=== PATIENT | female | born 1940 | race Caucasian/White ===

== ENCOUNTER → 2019-09-24 10:14 | Outpatient (BNVA) | payer MEDICARE, MEDICAID, SELFPAY | PROVIDERS: Family Provider Family Medicine; Visit Provider Nurse Practitioner Psychiatric/Mental Health | DX: F33.41 Major depressive disorder, recurrent, in partial remission (principal); F41.8 Other specified anxiety disorders; Z86.59 Personal history of other mental and behavioral disorders | CPT/HCPCS: 99213 ==

== ENCOUNTER → 2019-10-02 09:30 | Outpatient (BNVA) | payer MEDICARE, MEDICAID, SELFPAY | PROVIDERS: Family Provider Family Medicine; Visit Provider Nurse Practitioner Psychiatric/Mental Health | DX: Z79.899 Other long term (current) drug therapy (principal) | CPT/HCPCS: 80061; 83036 ==

== ENCOUNTER → 2020-01-14 07:52 | Outpatient (BNVA) | payer MEDICARE, MEDICAID, SELFPAY | PROVIDERS: Family Provider Family Medicine; Visit Provider Nurse Practitioner Psychiatric/Mental Health | DX: F33.41 Major depressive disorder, recurrent, in partial remission (principal); F41.8 Other specified anxiety disorders; Z86.59 Personal history of other mental and behavioral disorders; F41.1 Generalized anxiety disorder | CPT/HCPCS: 99213 ==

== ENCOUNTER → 2020-05-13 08:14 | Outpatient (BNVA) | payer MEDICARE, MEDICAID, SELFPAY | PROVIDERS: Family Provider Family Medicine; Visit Provider Nurse Practitioner Psychiatric/Mental Health | DX: F33.41 Major depressive disorder, recurrent, in partial remission (principal); F41.8 Other specified anxiety disorders; Z86.59 Personal history of other mental and behavioral disorders | CPT/HCPCS: 99213 ==

== ENCOUNTER 2020-06-01 15:13 | Outpatient (CLI) | payer MEDICARE, MEDICAID, SELFPAY ==
--- NOTE | 2020-06-01 15:20 | MM_ITS ---
WS: [id number] BILATERAL SCREENING DIGITAL MAMMOGRAM WITH CAD HISTORY: SCREENING COMPARISON: 05/21/2019 and 09/29/2011 Bilateral CC and MLO views submitted. Computer aided detection analyzed. Breast composition: There are scattered areas of fibroglandular density. No suspicious masses, microc alcifications or architectural distortion. Stable cluster of calcifications in the lateral RIGHT [address] MM/[place] [id number] IMPRESSION: BI-RADS: 2-Benign FOLLOW UP: 1 Year Follow-up
== END 2020-06-01 15:14 | disposition home or self-care (01) ==
LOC: RADSHAW 15:19
PROVIDERS: PCP Family Medicine; Visit Provider Family Medicine
DX: Z12.31 Encounter for screening mammogram for malignant neoplasm of breast (principal)
CPT/HCPCS: 77067

== ENCOUNTER → 2020-09-08 07:57 | Outpatient (BNVA) | payer MEDICARE, MEDICAID, SELFPAY | PROVIDERS: PCP Family Medicine; Visit Provider Nurse Practitioner Psychiatric/Mental Health | DX: F33.41 Major depressive disorder, recurrent, in partial remission (principal); F41.8 Other specified anxiety disorders; Z86.59 Personal history of other mental and behavioral disorders; Z79.899 Other long term (current) drug therapy | CPT/HCPCS: 99214 ==

== ENCOUNTER → 2020-09-29 09:13 | Outpatient (BNVA) | payer MEDICARE, MEDICAID, SELFPAY | PROVIDERS: PCP Family Medicine; Visit Provider Nurse Practitioner Psychiatric/Mental Health | DX: Z79.899 Other long term (current) drug therapy (principal) | CPT/HCPCS: 80053; 80061; 83036 ==

== ENCOUNTER → 2021-01-12 07:32 | Outpatient (BNVA) | payer MEDICARE, MEDICAID, SELFPAY | PROVIDERS: PCP Family Medicine; Visit Provider Nurse Practitioner Psychiatric/Mental Health | DX: F33.41 Major depressive disorder, recurrent, in partial remission (principal); F41.8 Other specified anxiety disorders; Z86.59 Personal history of other mental and behavioral disorders | CPT/HCPCS: 99214 ==

== ENCOUNTER → 2021-05-11 07:13 | Outpatient (BNVA) | payer MEDICARE, MEDICAID, SELFPAY | PROVIDERS: PCP Family Medicine; Visit Provider Nurse Practitioner Psychiatric/Mental Health | DX: F33.41 Major depressive disorder, recurrent, in partial remission (principal); F41.8 Other specified anxiety disorders; Z86.59 Personal history of other mental and behavioral disorders | CPT/HCPCS: 99214 ==

== ENCOUNTER → 2021-08-31 07:41 | Outpatient (BNVA) | payer MEDICARE, MEDICAID, SELFPAY | PROVIDERS: PCP Family Medicine; Visit Provider Nurse Practitioner Psychiatric/Mental Health | DX: F33.41 Major depressive disorder, recurrent, in partial remission (principal); F41.8 Other specified anxiety disorders; Z86.59 Personal history of other mental and behavioral disorders | CPT/HCPCS: 99214 ==

== ENCOUNTER → 2021-12-28 07:20 | Outpatient (BNVA) | payer MEDICARE, MEDICAID, SELFPAY | PROVIDERS: PCP Family Medicine; Visit Provider Nurse Practitioner Psychiatric/Mental Health | DX: F33.41 Major depressive disorder, recurrent, in partial remission (principal); F41.8 Other specified anxiety disorders; Z86.59 Personal history of other mental and behavioral disorders; Z79.899 Other long term (current) drug therapy | CPT/HCPCS: 99214 ==

== ENCOUNTER → 2022-04-18 11:22 | Outpatient (BNVA) | payer MEDICARE, MEDICAID, SELFPAY | PROVIDERS: PCP Family Medicine; Visit Provider Nurse Practitioner Psychiatric/Mental Health | DX: F33.41 Major depressive disorder, recurrent, in partial remission (principal); F41.8 Other specified anxiety disorders; Z86.59 Personal history of other mental and behavioral disorders; Z79.899 Other long term (current) drug therapy | CPT/HCPCS: 80053; 80061; 83036 ==

== ENCOUNTER → 2022-10-23 16:15 | Outpatient (BNVA) | payer MEDICARE, MEDICAID, OTHER, SELFPAY | PROVIDERS: PCP Family Medicine; Visit Provider Nurse Practitioner Women's Health | DX: N95.0 Postmenopausal bleeding (principal) | CPT/HCPCS: 87624 ==

== ENCOUNTER → 2022-11-07 10:42 | Outpatient (BNVA) | payer MEDICARE, MEDICAID, OTHER, SELFPAY | PROVIDERS: PCP Family Medicine; Visit Provider Nurse Practitioner Women's Health | DX: N93.9 Abnormal uterine and vaginal bleeding, unspecified (principal) | CPT/HCPCS: 76830 ==

== ENCOUNTER 2022-12-28 09:42 | Day surgery (SDC) | payer MEDICARE, MEDICAID, SELFPAY ==
[2022-12-27 12:36] VITALS: BMI 26.7
[2022-12-28] VITALS (9 sets, daily range): BP systolic 112–142; BP diastolic 67–88; PULSE 69–86; RESP 16; TEMP 36.1–36.4; O2SAT 91–96
[2022-12-28] MEDS: sodium chloride 0.9% 1,000 ML 30 ML IV (10:21)
--- NOTE | 2022-12-28 11:48 | W.PM.OPSUD ---
Surgery/Procedure H&P Update DATE OF PROCEDURE: December 28, 2022 DATE H&P PERFORMED: 12/05/22 CHANGES TO PREVIOUS DOCUMENTATION: none PREOP DIAGNOSIS: abnormal uterine bleeding PRIMARY INDICATION FOR PROCEDURE: abnormal uterine bleeding PLANNED PROCEDURE: Operation Date: 12/28/22 11:45 Proposed Procedures p Hysteroscopy with Myosure, endometrial sampling 02824, possible endometrial polypectomy 85869,N95.0(Not Applicable) - Harvey Maynard MD s possible endometrial polypectomy 09199(Not Applicable) - Harvey Maynard MD
--- NOTE | 2022-12-28 13:13 | ANES.PREANE2 ---
Pre-Anesthetic Assessment Height/Weight: Height 1.63 m Weight 70.76 kg Temp Pulse Resp BP Pulse Ox O2 Del Method 97.5 F L 72 16 112/85 96 Room Air 12/28/22 10:05 12/28/22 10:05 12/28/22 10:05 12/28/22 10:05 12/28/22 10:05 12/28/22 10:05 Preop Diagnosis: abnormal uterine bleeding Operation Date: 12/28/22 11:45 Proposed Procedures p Hysteroscopy with Myosure, endometrial sampling 83114, possible endometrial polypectomy 47376,N95.0(Not Applicable) - Harvey Maynard MD s possible endometrial polypectomy 19309(Not Applicable) - Harvey Maynard MD Familial anesthetic complications: none Was Beta Briseida taken within 24 hours: N/A Was Clonidine taken within 24 hours: N/A Last intake: Intake Last Liquid Date 12/27/22 Last Liquid Time 19:00 Last Solid Date 12/27/22 Last Solid Time 19:00 Social No alcohol and No tobacco Exam alert, oriented x 3, clear to auscultation bilaterally and regular rate & rhythm Airway Submandibular: within normal limits Cervical ROM: within normal limits Mallampati: Class II Dentition: full Neuropsych Anxiety and Depression OCD Anesthetic Plan ASA status: 2 Anesthesia: General Medications/Allergies Home Medications Medication Instructions Recorded Confirmed Last Taken Type aspirin 325 mg tablet 325 mg PO DAILY 10/23/22 12/28/22 12/27/22 History fluoxetine 40 mg capsule (Prozac) 40 mg PO QAM #30 caps 11/21/22 12/28/22 12/27/22 Rx lorazepam 0.5 mg tablet 0.5 mg PO BID PRN anxiety #60 tabs 11/21/22 12/28/22 12/27/22 Rx olanzapine 10 mg tablet (Zyprexa) 10 mg PO BID #60 tabs 11/21/22 12/28/22 12/27/22 Rx Allergies Allergy/AdvReac Type Severity Reaction Status Date / Time No Known Allergies Allergy Verified 12/05/22 09:10 Current Medications Generic Name Dose Route Start Last Admin Trade Name Freq PRN Reason Stop Dose Admin Sodium Chloride 1,000 mls @ 30 mls/hr 12/28/22 10:00 12/28/22 10:21 Sodium Chloride 0.9% IV 12/29/22 09:59 30 mls/hr .Q24H IGLESIA Administration PFSH Anesthesia Medical History History of obsessive compulsive disorder Major depressive disorder, recurrent episode, in partial remission with anxious distress Psychiatric care Family History Denies family history of Cervical cancer Colon cancer Ovarian cancer Diabetes Breast cancer Hypertension Uterine cancer Stroke Social History Smoking and tobacco status: never smoked Data Anesthesia Cardiac Studies: No Data to Display
--- NOTE | 2022-12-28 16:55 | ANE.PACU2 ---
Inpatient post-anesthesia follow up: Airway intact: Yes Vital signs: Temperature 97 F Pulse Rate 77 Respiratory Rate 16 Blood Pressure 120/74 Pulse Oximetry 92 Oxygen Delivery Me thod Room Air Oxygen Flow Rate Fraction of Inspir ed Oxygen Hydration adequate: Yes Nausea and vomiting: No Pain level: 2 Mental status: Baseline
--- NOTE | 2022-12-29 08:40 | PM.OP ---
Operative Report Date of procedure: December 28, 2022 Pre-op diagnosis: Preop Diagnosis abnormal uterine bleeding Post-op diagnosis: same Post-op findings: uterus sounded to 8 cm Moderate amount of endometrial tissue No polyps / fibroids Procedure done: hysteroscopy curettage of uterus Specimens removed/disposition: endometrial curettings Surgeon: Harvey Maynard MD Estimated blood loss (mL): 0 Complications: none Condition: stable Brief History: 82 y.o. with postmenopausal bleeding Procedure: Informed consent signed. Patient was taken to the operating room. Anesthesia induced. Patient was placed in dorsolithotomy position, prepped and draped for hysteroscopy. A bivalve speculum was placed in the vagina. The anterior lip of the cervix was grasped with a sharp-toothed tenaculum. The cervix was serially dilated with Hegar dilators. . A hysteroscope was placed into the endometrial cavity. The endometrial cavity was seen to have moderate amount of endometrial tissue with multiple bleeding points. There were no polyps or fibroids. The hysteroscope was then removed. Endometrial curettage was done with a sharp curette. Endometrial tissue was sent to pathology. The sharp-toothed tenaculum was removed. There was no bleeding from the endometrial cavity or cervix. The patient was then placed supine and awakened and taken to the PACU. Postop condition: stable EBL: none Sponge and instruments counts were normal x 2 Complications: none
== END 2022-12-28 17:10 | disposition home or self-care (01) ==
PROVIDERS: PCP Family Medicine; Visit Provider Obstetrics & Gynecology
PROC: 0UDB8ZZ Extraction of Endometrium, Via Natural or Artificial Opening Endoscopic (ICD-10-PCS; CPT 58558; principal; 2022-12-28 11:35)
DX: N95.0 Postmenopausal bleeding (principal); Z79.82 Long term (current) use of aspirin; F41.9 Anxiety disorder, unspecified; F32.A Depression, unspecified
CPT/HCPCS: 58558; 88305; J1100; J1200; J2405; J2704; J3010; J7030

== ENCOUNTER → 2023-05-22 13:31 | Outpatient (BNVA) | payer MEDICARE, MEDICAID, SELFPAY | PROVIDERS: PCP Family Medicine; Visit Provider Nurse Practitioner Psychiatric/Mental Health | DX: Z79.899 Other long term (current) drug therapy (principal) | CPT/HCPCS: 80061; 83036 ==

== ENCOUNTER 2023-06-26 11:45 | Emergency (ER) | payer MEDICARE, MEDICAID, SELFPAY ==
[2023-06-26 11:46] VITALS: BP 126/83; PULSE 81; RESP 14; TEMP 36.7; O2SAT 98; BMI 26.1
--- NOTE | 2023-06-26 11:55 | ECG_ITS ---
[facility] Test Date: 2023-06-26 Pat Name: Gabriela Denny Department: Room: Gender: Female Recruiting Administrator: : 1940 Requested By: Yulia Morales Order Number: [id number] Yola MD: Kathi Hauser M.D. Measurements Intervals [place] Rate: 84 P: 74 W[place]: 149 QRS: 23 QRSD: 80 T: 30 QT: 372 QTc: 442 Interpretive Statements SINUS RHYTHM Compared to ECG 07/20/2016 14:37:42 Ectopic atrial rhythm no longer present Ventricular premature complex(es) no longer present Electronically Signed On 06-26-2023 14:24:23 ASSISTANT DIRECTOR OF FINANCIAL AID by Kathi Hauser M.D. [email or web address]
--- NOTE | 2023-06-26 12:03 | XRR_ITS ---
PROCEDURE INFORMATION: Exam: XR Chest Exam date and time: 06/26/2023 12:06 PM Age: 82 years old Clinical indication: Patient HX: Syncope, PT very shaky since early this morning TECHNIQUE: Imaging protocol: Radiologic exam of the chest. Views: 1 view. COMPARISON: CR XR chest 2V* [id number] 07/20/2016 2:46 PM FINDINGS: Lungs: Mild atelectasis or infiltrate at the lateral left lung base. Pleural spaces: Unremarkable. No pleural effusion. No pneumothorax. Heart/Mediastinum: See Vasculature finding. Vasculature: Borderline cardiomegaly and uncoiling of the thoracic aorta each accentuated by the AP. Bones/joints: Unremarkable. XR/XR chest 1V portable [id number] IMPRESSION: Minimal atelectasis or infiltrate at the lateral left lung base.
--- NOTE | 2023-06-26 12:04 | W.ED.SYNCOPE ---
HPI - Syncope General: Chief Complaint: Syncope Stated Complaint: syncope Time Seen by Provider: 06/26/23 11:53 Source: patient Mode of arrival: EMS Limitations: no limitations History of Present Illness: Patient is a nice 82-year-old female presents to ED today via EMS along with her for evaluation of a possible syncopal episode. According to report patient was at [facility] speaking to her psychiatrist when she began to feel dizzy and lightheaded. Report states that patient had a syncopal episode although patient denies this. Report also states that patient was bradycardic in the 30s. Patient does states she remembers feeling lightheaded but does not believe she ever passed out. Upon arrival to the emergency department she states she is completely asymptomatic. She arrives with normal vital signs. She states the only medications she takes is for depression and an aspirin a day. Denies chest pain, shortness of breath, difficulty breathing, or palpitations. She is not having any dizziness or lightheadedness upon arrival. MD complaint: loss of consciousness Onset (ago): minute(s) -: second(s) Prodromal symptoms: lightheaded Witnessed: Yes - by Bystander Injuries sustained associated with event: none Associated symptoms: Deny abdominal pain, chest pain, fever(s), headache(s), lightheadedness, nausea or vertigo Treatments prior to arrival: none Review of Systems Const: Denies: fever(s) or chills Eyes: Denies: change in vision or blurry vision Card: Denies: chest pain, palpitations, irregular heart rhythm, edema, swelling of feet/ankles, lightheadedness, syncope or dyspnea on exertion Resp: Denies: dyspnea, productive cough or pain on inspiration GI: Denies: abdominal pain, nausea, vomiting, heartburn or diarrhea : Denies: dysuria Musc: Denies: neck pain, back pain, extremity pain, extremity swelling or joint pain Skin/Breast: Denies: rash Neuro: Reports: dizziness (subsided upon arrival); Denies: headache(s), numbness in extremities, weakness in extremities, sensory changes, lack of coordination, difficulty walking, frequent falls, vertigo, confusion, behavioral changes, Slurred speech present, difficulty communicating thoughts or seizure-like activity [facility] PFSH: Medical History History of obsessive compulsive disorder Major depressive disorder, recurrent episode, in partial remission with anxious distress Psychiatric care Family History Denies family history of Cervical cancer Colon cancer Ovarian cancer Diabetes Breast cancer Hypertension Uterine cancer Stroke Social History Smoking and tobacco/nicotine status: never used tobacco/nicotine Physical Exam Const: COMMON NORMALS: no acute distress, average body habitus, patient oriented x3, no limitations, healthy appearing, alert and well nourished GENERAL APPEARANCE: cooperative ORIENTATION/CONSCIOUSNESS: Yes awake, Yes oriented to person and Yes oriented to time HENMT: COMMON NORMALS: normocephalic and atraumatic HEAD & SCALP: normal to inspection, normocephalic and atraumatic FACE & SINUS: normal facial exam Eye: COMMON NORMALS: Equal, round and reactive pupils present and EOMs intact bilaterally GENERAL EYE: appearance normal, both eyes and all related structures and normal light reflex PUPIL: Yes Equal, round and reactive pupils present DIRECT OPHTHALMOSCOPY: Yes normal light reflex Neck/C-Spine: COMMON NORMALS: full ROM, no lymphadenopathy, supple and no meningeal signs Chest: COMMONS NORMALS: normal inspection of the chest Resp: COMMON NORMALS: normal respiratory effort and clear to auscultation bilaterally AUSCULTATION: clear to auscultation bilaterally Cardio: COMMON NORMALS: regular rate and regular rhythm RATE: regular rate RHYTHM: regular rhythm GI: COMMON NORMALS: Normal to inspection, nondistended, normoactive bowel sounds present, Soft to palpation, non-tender, No hepatosplenomegaly present and no masses PALPATION: Yes Soft to palpation and Yes No hepatosplenomegaly present : COMMON NORMALS: Yes no CVA tenderness BLADDER/KIDNEY EXAM: Yes no CVA tenderness Back/Pelvis: COMMON NORMALS: no CVA tenderness, thoracic and lumbar spine normal to inspection, no thoracic nor lumbar tenderness and thoraco-lumbar ROM normal Extremity: COMMON NORMALS: normal to inspection and full ROM GENERAL: Yes normal exam except as noted Neuro: JULIÁN COMA SCALE: document GCS findings Julián coma scale eye opening: Spontaneous Julián coma scale verbal response: Orientated [place] coma scale motor response: Obey commands Julián coma scale total score: 15 COMMON NORMALS: patient oriented x3, CN's II-XII intact bilaterally, moves all extremities, no focal motor deficits and no sensory deficits noted SENSORIUM/ORIENTATION: Yes alert, Yes oriented to person and Yes oriented to time MENINGEAL SIGNS: Yes no meningeal signs SPEECH: speech normal Skin: COMMON NORMALS: no rashes or lesions noted GENERAL SKIN EXAM: no rashes or lesions noted Course Vital Signs: Vital signs: Vital Signs Temperature 98.1 F 06/26/23 11:46 Pulse Rate 80 06/26/23 13:23 Respiratory Rate 14 06/26/23 11:46 Blood Pressure 137/84 06/26/23 13:23 Pulse Oximetry 97 06/26/23 13:23 Oxygen Delivery Me thod Room Air 06/26/23 13:01 Oxygen Flow Rate 2 06/26/23 11:46 MDM - Syncope Medical Decision Making Patient is a nice 82-year-old female here following a possible syncopal episode although patient states she never lost consciousness. She states she got lightheaded and dizzy although never lost consciousness. EMS got report from [facility] that said she did lose consciousness and possibly bradycardia down into the 30s. Pulse rate was 80s when EMS arrived and picked her up. She has been 80s throughout her emergency department stay. Upon arrival to the ED she is completely asymptomatic. Her blood work including trop is unremarkable. UA clear. EKG showing normal sinus in the 80s. CXR showing minimal atelectasis versus infiltrate in her lateral left lung base. Patient denies shortness of breath or cough. She has not recently been ill. Vital signs are normal. She has a normal white count. I favor this is more atelectasis. She was able to get up and ambulate surprisingly well here in the emergency department with no complaints of chest pain, shortness of breath, dizziness/lightheadedness, or palpitations. Patient will be allowed discharge with return precautions. Lab Data 06/26/23 11:35 06/26/23 11:35 Radiology Impressions Chest X-Ray 06/26/23 12:03 IMPRESSION: Minimal atelectasis or infiltrate at the lateral left lung base. Laboratory Results WBC 4.65 10^3/uL (3.29-11.43) 06/26/23 11:35 RBC 4.18 10^6/uL (3.85-5.65) 06/26/23 11:35 Hgb 13.60 g/dL (11.27-16.99) 06/26/23 11:35 Hct 41.3 % (36-47) 06/26/23 11:35 MCV 98.8 fl (85-98) H 06/26/23 11:35 MCH 32.5 pg (27-33) 06/26/23 11:35 MCHC 32.9 g/dL (30-55) 06/26/23 11:35 RDW 14.5 % (12.1-15.1) 06/26/23 11:35 Plt Count 266 10^3/cmm (157-399) 06/26/23 11:35 MPV 10.6 fL (7.4-10.4) H 06/26/23 11:35 Neut % (Auto) 68.7 % 06/26/23 11:35 Lymph % (Auto) 22.6 % 06/26/23 11:35 [place] % (Auto) 6.2 % 06/26/23 11:35 Eos % (Auto) 1.7 % 06/26/23 11:35 Baso % (Auto) 0.6 % 06/26/23 11:35 Neut # (Auto) 3.19 10^3/uL (1.8-7.7) 06/26/23 11:35 Lymph # (Auto) 1.1 10^3/uL (0.8-4.8) 06/26/23 11:35 [place] # (Auto) 0.3 10^3/uL (0.2-0.9) 06/26/23 11:35 Eos # (Auto) 0.1 10^3/uL (0.0-0.8) 06/26/23 11:35 Baso # (Auto) 0.0 10^3/uL (0.0-0.1) 06/26/23 11:35 Nucleated RBC % (auto) 0 % 06/26/23 11:35 Nucleated RBCs # 0.0 /100WBC 06/26/23 11:35 Sodium 142 mmol/L (136-145) 06/26/23 11:35 Potassium 4.3 mmol/L (3.5-5.1) 06/26/23 11:35 Chloride 105 mmol/L (98-107) 06/26/23 11:35 Carbon Dioxide 25 mmol/L (22-29) 06/26/23 11:35 Anion Gap 16.3 (5-19) 06/26/23 11:35 BUN 20 mg/dL (8-23) 06/26/23 11:35 Creatinine 1.1 mg/dL (0.5-0.9) H 06/26/23 11:35 GFR Calculation Not Reportable 06/26/23 11:35 Glucose 114 mg/dL (65-115) 06/26/23 11:35 Calculated Osmolality 297 mOsm/kg (285-295) H 06/26/23 11:35 Calcium 9.0 mg/dL (8.5-10.5) 06/26/23 11:35 Total Bilirubin 0.3 mg/dL (0.15-1.2) 06/26/23 11:35 AST 22 U/L (0-32) 06/26/23 11:35 ALT 15 U/L (0-33) 06/26/23 11:35 Alkaline Phosphatase 82 U/L (35-105) 06/26/23 11:35 Troponin T Baseline 10 ng/L (0-10) 06/26/23 11:35 Total Protein 7.6 g/dL (6.6-8.7) 06/26/23 11:35 Albumin 3.9 g/dL (3.5-5.2) 06/26/23 11:35 Globulin 3.7 g/dL (1.3-4.6) 06/26/23 11:35 Urine Color Yellow (Yellow) 06/26/23 12:35 Urine Appearance Clear (CLEAR) 06/26/23 12:35 Urine pH 5 (5-7) 06/26/23 12:35 Ur Specific [place] 1.015 (1.005-1.030) 06/26/23 12:35 Urine Protein Neg (Negative) 06/26/23 12:35 Urine Glucose (UA) Norm (Normal) 06/26/23 12:35 Urine Ketones Negative (Negative) 06/26/23 12:35 Urine Blood Neg (Negative) 06/26/23 12:35 Urine Nitrate Negative (Negative) 06/26/23 12:35 Urine Bilirubin Neg (Negative) 06/26/23 12:35 Urine Urobilinogen Norm mg/dL (Negative) 06/26/23 12:35 Ur Leukocyte Esterase Negative (Negative) 06/26/23 12:35 All radiology interpretation(s) finalized by discharge Discharge Plan Discharge Patient Disposition: Home Clinical Impression: Syncope Qualifiers: Syncope type: unspecified Qualified Code(s): R55 - Syncope and collapse Condition: Stable Prescriptions: No Action lorazepam 0.5 mg tablet 0.5 mg PO BID PRN (Reason: anxiety) Qty: 60 3RF Rx Instructions: Take one tab at bedtime May also take one tablet daily as needed for anxiety aspirin 325 mg tablet 325 mg PO DAILY olanzapine [Zyprexa] 10 mg tablet 10 mg PO BID Qty: 60 6RF Rx Instructions: Take one tablet twice per day fluoxetine [Prozac] 40 mg capsule 40 mg PO QAM Qty: 30 6RF Rx Instructions: Take one capsule every morning Discharge Orders: Discharge ED (Routine); Ordered 06/26/23 Ordered By: Yulia Morales Referrals: Noel Garcia MD [Primary Care Provider] - Activity Restrictions/Additional Instructions: As we discussed I like you to follow-up with Dr. Garcia later this week for re-evaluation. You need to return to the emergency department for onset of chest pain, shortness of breath, difficulty breathing, cough, fevers, any lightheadedness/dizziness or further passing out episodes. Coding Level of Care Code ED House Designer for Kwame Faustin
[2023-06-26 12:11] LABS: Basophils % 0.6 %; Eosinophils # 0.1 10^3/uL (0.0-0.8); Eosinophils % 1.7 %; Hematocrit 41.3 % (36-47); Lymphocytes # 1.1 10^3/uL (0.8-4.8); Lymphocytes % 22.6 %; Mean Corpuscular HGB Conc 32.9 g/dL (30-55); Mean Corpuscular Hemoglobin 32.5 pg (27-33); Mean Corpuscular Volume 98.8 fl (85-98); Mean Platelet Volume 10.6 fL (7.4-10.4); Monocytes # 0.3 10^3/uL (0.2-0.9); Monocytes % 6.2 %; Neutrophils # 3.19 10^3/uL (1.8-7.7); Neutrophils % 68.7 %; Nucleated Red Blood Cells % 0 %; Platelet Count 266 10^3/cmm (157-399); Red Blood Count 4.18 10^6/uL (3.85-5.65); Red Cell Distribution Width 14.5 % (12.1-15.1); White Blood Count 4.65 10^3/uL (3.29-11.43)
[2023-06-26 12:23] LABS: Alanine Aminotransferase 15 U/L (0-33); Albumin Level 3.9 g/dL (3.5-5.2); Alkaline Phosphatase 82 U/L (35-105); Anion Gap 16.3 (5-19); Aspartate Amino Transferase 22 U/L (0-32); Blood Urea Nitrogen 20 mg/dL (8-23); Carbon Dioxide 25 mmol/L (22-29); Chloride 105 mmol/L (98-107); Globulin 3.7 g/dL (1.3-4.6); Glucose 114 mg/dL (65-115); Osmolality Calculated 297 mOsm/kg (285-295); Potassium 4.3 mmol/L (3.5-5.1); Sodium 142 mmol/L (136-145); Total Bilirubin 0.3 mg/dL (0.15-1.2); Total Protein 7.6 g/dL (6.6-8.7)
[2023-06-26 12:25] LABS: Troponin(5th) Baseline 10 ng/L (0-10)
[2023-06-26 12:45] LABS: Add Urine Microscopic? NO; Charge for UA Resulting for Rev
[2023-06-26 12:48] LABS: Bilirubin Urine Neg (Negative); Blood Urine Neg (Negative); Glucose Urine UA Norm (Normal); Ketones Urine Negative (Negative); Leukocyte Esterase Urine Negative (Negative); Nitrate Urine Negative (Negative); Protein Urine Neg (Negative); Specific Gravity, Urine 1.015 (1.005-1.030); Urine Appearance Clear (CLEAR); Urine Color Yellow (Yellow); Urobilinogen Urine Norm (Negative); pH Urine 5 (5-7)
[2023-06-26 13:01] VITALS: BP 125/83; PULSE 80; O2SAT 97
[2023-06-26 13:23] VITALS: BP 137/84; PULSE 80; O2SAT 97
== END 2023-06-26 13:25 | disposition home or self-care (01) ==
PROVIDERS: Emergency Provider Physician Assistant; PCP Family Medicine
DX: R55 Syncope and collapse (principal); Z79.82 Long term (current) use of aspirin
CPT/HCPCS: 71045; 80053; 81003; 84484; 85025; 93005; 93010; 99285

== ENCOUNTER → 2024-03-03 11:13 | Outpatient (BNVA) | payer MEDICARE, SELFPAY | PROVIDERS: PCP Family Medicine; Visit Provider Nurse Practitioner Psychiatric/Mental Health | DX: Z79.899 Other long term (current) drug therapy (principal); F33.41 Major depressive disorder, recurrent, in partial remission; F41.8 Other specified anxiety disorders; Z86.59 Personal history of other mental and behavioral disorders | CPT/HCPCS: 80053; 80061; 83036 ==

== ENCOUNTER 2024-04-16 09:13 | Outpatient (CLI) | payer MEDICARE, SELFPAY ==
--- NOTE | 2024-04-16 09:22 | MM_ITS ---
WS: [id number] SCREENING DIGITAL BREAST TOMOSYNTHESIS MAMMOGRAM WITH CAD HISTORY: SCREENING COMPARISON: 06/01/2020, 05/21/2019 Bilateral CC and MLO with tomosynthesis and synthetic mammography submitted. Computer aided detection analyzed. Breast composition: There are scattered areas of fibroglandular density. Area of increasing density a nd asymmetry in the lateral LEFT breast near 3-4 o'clock. May be due to poor compression but needs to be further evaluated. Benign calcifications RIGHT breast at 9:00. MM/[place] [id number] IMPRESSION: BI-RADS: 0 - Incomplete: Need additional imaging evaluation. FOLLOW UP: Need Additional Imaging LEFT breast: Spot compression views (CC and MLO). True ML. Ultrasound to follow if abnormality persists.
== END 2024-04-16 09:14 | disposition home or self-care (01) ==
LOC: RAD 09:15
PROVIDERS: PCP Family Medicine; Visit Provider Family Medicine
DX: Z12.31 Encounter for screening mammogram for malignant neoplasm of breast (principal)
CPT/HCPCS: 77063; 77067

== ENCOUNTER 2024-06-03 09:19 | Outpatient (CLI) | payer MEDICARE, SELFPAY ==
--- NOTE | 2024-06-03 09:23 | MM_ITS ---
WS: [id number] ADDITIONAL VIEWS LEFT MAMMOGRAM with tomosynthesis. LEFT BREAST ULTRASOUND HISTORY: INCONCLUSIVE MAMMOGRAM COMPARISON: 04/16/2024, 06/01/2020 LEFT MAMMOGRAM: Spot compression views and true ML with tomosynthesis and sympathetic mammography. Asymmetry persists but becomes less conspicuous in the lateral LEFT breast. This is seen best on the lateral projection at the level of the nipple. No distortion. No calcifications. LEFT BREAST ULTRASOUND 2-D and color Doppler imaging submitted. Ultrasound directed from 3-5 o'clock of the LEFT breast. There is no mass or shadowing identified. No rmal ultrasound. MM/MM diag LT tomosynthesis [id number] IMPRESSION: BI-RADS: 2- Benign FOLLOW UP: 1 Year Follow-up
== END 2024-06-03 09:20 | disposition home or self-care (01) ==
LOC: RAD 09:21
PROVIDERS: PCP Family Medicine; Visit Provider Family Medicine
DX: R92.2 Inconclusive mammogram (principal); N64.89 Other specified disorders of breast
CPT/HCPCS: 76642; 77061; G0279

== ENCOUNTER → 2024-11-12 10:02 | Outpatient (BNVA) | payer MEDICARE, MEDICAID, SELFPAY | PROVIDERS: PCP Family Medicine; Visit Provider Obstetrics & Gynecology | DX: N85.8 Other specified noninflammatory disorders of uterus (principal) | CPT/HCPCS: 76830 ==

== ENCOUNTER → 2025-03-25 15:48 | Outpatient (BNVA) | payer MEDICARE, MEDICAID, SELFPAY | PROVIDERS: PCP Family Medicine; Visit Provider Nurse Practitioner Psychiatric/Mental Health | DX: Z79.899 Other long term (current) drug therapy (principal) | CPT/HCPCS: 80053; 80061; 83036 ==

== ENCOUNTER 2025-06-05 10:00 | Outpatient (CLI) | payer MEDICARE, MEDICAID, SELFPAY ==
--- NOTE | 2025-06-05 10:07 | MM_ITS ---
WS: [id number] BILATERAL SCREENING DIGITAL TOMOSYNTHESIS MAMMOGRAM WITH CAD HISTORY: SCREENING COMPARISON: 06/03/2024, 04/16/2024, 06/01/2020 Bilateral CC and MLO views with tomosynthesis and synthetic mammography submitted. Computer aided detection analyzed. Breast composition: There are scattered areas of fibroglandular density. No suspicious masses, microcalcifications or architectural distortion. Benign cluster of calcifications RIGHT breast near 9:00 is probably a fibroadenoma. No suspicious masses or calcifications. MM/MM scr BI tomosynthesis [id number] IMPRESSION: BI-RADS: 2 - Benign. FOLLOW UP: 1 Year Follow-up
== END 2025-06-05 10:01 | disposition home or self-care (01) ==
LOC: RAD 10:01
PROVIDERS: PCP Family Medicine; Visit Provider Family Medicine
DX: Z12.31 Encounter for screening mammogram for malignant neoplasm of breast (principal); R92.323 Mammographic fibroglandular density, bilateral breasts; R92.1 Mammographic calcification found on diagnostic imaging of breast
CPT/HCPCS: 77063; 77067